=== PATIENT | female | born 1955 | race American Indian/Alaskan Native ===

== ENCOUNTER 2020-08-11 11:40 | Emergency (ER) | payer MEDICAID ==
[2020-08-11 13:27] LABS: Basophils # (Auto) 0.1 K/mm3 (0.0-0.1); Basophils % (Auto) 0.8 % (0.0-1.8); Eosinophils # (Auto) 0.1 K/mm3 (0.0-0.4); Eosinophils % (Auto) 1.6 % (0.0-4.3); Hematocrit 39.1 % (30.3-42.9); Hemoglobin 12.8 gm/dl (10.1-14.3); Lymphocytes # (Auto) 1.8 K/mm3 (1.2-5.4); Lymphocytes % (Auto) 27.5 % (13.4-35.0); Mean Corpuscular HGB Conc 33 % (30-34); Mean Corpuscular Volume 79 fl (79-97); Monocytes # (Auto) 0.5 K/mm3 (0.0-0.8); Monocytes % (Auto) 7.1 % (0.0-7.3); Platelet Count 318 K/mm3 (140-440); Red Blood Count 4.94 M/mm3 (3.65-5.03); Red Cell Distribution Width 16.2 % (13.2-15.2)
[2020-08-11 14:23] LABS: Alanine Aminotransferase 118 units/L (7-56); BUN/Creatinine Ratio 13; Blood Urea Nitrogen 10 mg/dL (7-17); Hemolysis Index 34
--- NOTE | 2020-08-11 18:34 | Emergency Department Report ---
ED General Adult HPI - General Chief complaint: Hyperglycemia Stated complaint: HIGH SUGAR Time Seen by Provider: 08/11/20 18:25 Source: patient Mode of arrival: Ambulatory Limitations: No Limitations - History of Present Illness Initial comments: Patient is a 65-year-old female COPD, diabetes, hypercholesterolemia who presents emergency room for evaluation elevated blood sugar. Patient states that at 2 PM today she felt more weak than usual and had an episode where she fell towards her left side. 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 She has had no trauma today and denies losing consciousness secondary to the incident. Patient's mother states that she seems more drowsy than normal and today her blood sugar was 492mg/dl and so she was instructed to come to her emergency room by her mother. Patient states that her niece has been administering her medications at home and she currently takes aspirin Plavix lisinopril and the tablet for her diabetes. Patient states that she currently feels fine now that she is arrived to the emergency room. And she "would like to be checked out". - Related Data Allergies Allergy/AdvReac Type Severity Reaction Status Date / Time No Known Allergies Allergy Unverified 08/11/20 12:00 ED Review of Systems ROS: Stated complaint: HIGH SUGAR Other details as noted in HPI Comment: All other systems reviewed and negative Constitutional: weakness (generalized.). denies: chills, fever Eyes: denies: eye pain, eye discharge, vision change ENT: denies: ear pain, throat pain Respiratory: denies: cough, shortness of breath, wheezing Cardiovascular: denies: chest pain, palpitations Endocrine: no symptoms reported Gastrointestinal: denies: abdominal pain, nausea, diarrhea Genitourinary: denies: urgency, dysuria, discharge Musculoskeletal: denies: back pain, joint swelling, arthralgia Skin: denies: rash, lesions Neurological: weakness (has residual left sided weakness after her CVA.). denies: headache, paresthesias Psychiatric: denies: anxiety, depression Hematological/Lymphatic: denies: easy bleeding, easy bruising ED Past Medical Hx - Past Medical History Previous Medical History?: Yes Hx Hypertension: Yes Hx CVA: Yes Hx Diabetes: Yes Additional medical history: high cholesterol - Surgical History Past Surgical History?: No - Social History Smoking Status: Never Smoker Substance Use Type: None ED Physical Exam - General Limitations: No Limitations General appearance: alert, in no apparent distress - Head Head exam: Present: atraumatic, normocephalic - Eye Eye exam: Present: normal appearance - ENT ENT exam: Present: mucous membranes moist - Neck Neck exam: Present: normal inspection - Respiratory Respiratory exam: Present: normal lung sounds bilaterally. Absent: respiratory distress - Cardiovascular Cardiovascular Exam: Present: regular rate, normal rhythm. Absent: systolic murmur, diastolic murmur, rubs, gallop - GI/Abdominal GI/Abdominal exam: Present: soft, normal bowel sounds - Rectal Rectal exam: Present: deferred - Extremities Exam Extremities exam: Present: normal inspection - Back Exam Back exam: Present: normal inspection - Neurological Exam Neurological exam: Present: alert, oriented X3, CN II-XII intact (no FND on exam, strength symmetric in bilateral upper extremities.) - Psychiatric Psychiatric exam: Present: normal affect, normal mood - Skin Skin exam: Present: warm, dry, intact, normal color. Absent: rash ED Course Vital Signs 08/11/20 08/11/20 08/11/20 12:00 18:29 18:35 Temperature 98.7 F 98.7 F Pulse Rate 80 93 H 92 H Respiratory 18 16 16 Rate Blood Pressure 162/85 170/87 Blood Pressure 170/87 [Left] O2 Sat by Pulse 95 96 96 Oximetry 08/11/20 08/11/20 08/11/20 19:40 19:46 20:00 Temperature 98.6 F Pulse Rate 77 68 87 Respiratory 15 12 19 Rate Blood Pressure 167/97 168/92 Blood Pressure 167/97 [Left] O2 Sat by Pulse 97 96 100 Oximetry 08/11/20 08/11/20 08/11/20 20:16 20:30 20:46 Temperature Pulse Rate 94 H 76 73 Respiratory 20 15 17 Rate Blood Pressure 168/92 170/82 170/82 Blood Pressure [Left] O2 Sat by Pulse 99 97 99 Oximetry - Reevaluation(s) Reevaluation #1: 08/11/20 18:42 Patient's blood glucose downtrending without any ED interventions. Will reassess after IV fluids and metformin have been given. UA pending. No evidence of DKA or HHS at this time. Patient has no gap and no acidosis. 08/11/20 18:49 Reevaluation #2: Patient's urinalysis is devoid of any abnormalities. Patient's blood glucose has decreased significantly during her stay. Patient feels symptomatically improved will discharge patient home with primary care follow-up as an outp atient. 08/11/20 21:04 ED Medical Decision Making - Lab Data Result diagrams: 08/11/20 12:49 08/11/20 18:38 Laboratory Tests 08/11/20 08/11/20 08/11/20 12:03 12:49 12:49 WBC 6.5 RBC 4.94 Hgb 12.8 Hct 39.1 MCV 79 MCH 26 L MCHC 33 RDW 16.2 H Plt Count 318 Lymph % (Auto) 27.5 [place] % (Auto) 7.1 Eos % (Auto) 1.6 Baso % (Auto) 0.8 Lymph # (Auto) 1.8 [place] # (Auto) 0.5 Eos # (Auto) 0.1 Baso # (Auto) 0.1 Seg Neutrophils % 63.0 Seg Neutrophils # 4.1 VBG pH Sodium 135 L Potassium 4.5 Chloride 99.9 Carbon Dioxide 27 Anion Gap 13 BUN 10 Creatinine 0.8 Estimated GFR > 60 BUN/Creatinine Ratio 13 Glucose 499 H POC Glucose 465 H Calcium 10.0 Total Bilirubin 0.30 AST 47 H ALT 118 H Alkaline Phosphatase 115 Total Protein 7.6 Albumin 4.0 Albumin/Globulin Ratio 1.1 08/11/20 12:49 WBC RBC Hgb Hct MCV MCH MCHC RDW Plt Count Lymph % (Auto) [place] % (Auto) Eos % (Auto) Baso % (Auto) Lymph # (Auto) [place] # (Auto) Eos # (Auto) Baso # (Auto) Seg Neutrophils % Seg Neutrophils # VBG pH 7.365 Sodium Potassium Chloride Carbon Dioxide Anion Gap BUN Creatinine Estimated GFR BUN/Creatinine Ratio Glucose POC Glucose Calcium Total Bilirubin AST ALT Alkaline Phosphatase Total Protein Albumin Albumin/Globulin Ratio Laboratory Tests 08/11/20 08/11/20 08/11/20 12:03 12:49 12:49 WBC 6.5 RBC 4.94 Hgb 12.8 Hct 39.1 MCV 79 MCH 26 L MCHC 33 RDW 16.2 H Plt Count 318 Lymph % (Auto) 27.5 [place] % (Auto) 7.1 Eos % (Auto) 1.6 Baso % (Auto) 0.8 Lymph # (Auto) 1.8 [place] # (Auto) 0.5 Eos # (Auto) 0.1 Baso # (Auto) 0.1 Seg Neutrophils % 63.0 Seg Neutrophils # 4.1 VBG pH Sodium 135 L Potassium 4.5 Chloride 99.9 Carbon Dioxide 27 Anion Gap 13 BUN 10 Creatinine 0.8 Estimated GFR > 60 BUN/Creatinine Ratio 13 Glucose 499 H POC Glucose 465 H Calcium 10.0 Total Bilirubin 0.30 AST 47 H ALT 118 H Alkaline Phosphatase 115 Total Protein 7.6 Albumin 4.0 Albumin/Globulin Ratio 1.1 08/11/20 08/11/20 12:49 18:39 WBC RBC Hgb Hct MCV MCH MCHC RDW Plt Count Lymph % (Auto) [place] % (Auto) Eos % (Auto) Baso % (Auto) Lymph # (Auto) [place] # (Auto) Eos # (Auto) Baso # (Auto) Seg Neutrophils % Seg Neutrophils # VBG pH 7.365 Sodium Potassium Chloride Carbon Dioxide Anion Gap BUN Creatinine Estimated GFR BUN/Creatinine Ratio Glucose POC Glucose 339 H Calcium Total Bilirubin AST ALT Alkaline Phosphatase Total Protein Albumin Albumin/Globulin Ratio - EKG Data -: EKG Interpreted by Tn EKG shows normal: sinus rhythm Rate: normal - EKG Data Interpretation: no acute changes, normal EKG 08/11/20 18:52 Heart rate 84, PA level 187, QTc 425. - Medical Decision Making Patient is a 65-year-old female with a past medical history of hypertension, hypercholesterolemia, type 2 diabetes who presents emergency room for evaluation of elevated blood sugar and generalized weakness. Patient's vital signs were stable on arrival to the emergency room and remarkable for systolic hypertension. I gave consideration to HHS, DKA, true hypoglycemia. Basic labs were ordered to evaluate. An EKG was ordered to assure that there were no arrhythmic changes resulting in the patient's feeling of generalized weakness. She had no FND, low clinical suspicion for recurrent CVA. She was given IV fluids for symptomatic care. Disposition pending labs and improvement in her BGL. Critical care attestation.: If time is entered above; I have spent that time in minutes in the direct care of this critically ill patient, excluding procedure time. ED Disposition Clinical Impression: Hyperglycemia due to type 2 diabetes mellitus, Generalized weakness, Essential hypertension Disposition: TO HOME OR SELFCARE Is pt being admited?: No Does the pt Need Aspirin: No Condition: Stable Instructions: Hyperglycemia, [id number], Type 2 Diabetes Mellitus, Self Care, Adult, Weakness, [id number], Hyperglycemia, Diabetes Mellitus Type 2 in Adults (ED), Hypertension (ED) Referrals: PRIMARY CARE, [Primary Care Provider] - 3-5 Days Time of Disposition: 21:05
[2020-08-11] MEDS ORDERED: SODIUM CHLORIDE 0.9% 1000 ML 1,000 ML IV ONE (18:37)
[2020-08-11] MEDS ORDERED: metFORMIN 500 MG TAB PO ONE (18:47)
[2020-08-11] MEDS ORDERED: INSULIN NPH/REGULAR 70/30 INJ SUB-Q ONE (19:30)
[2020-08-11] MEDS ORDERED: K-LYTE 25 MEQ TABLET EFF PO STA (19:30)
[2020-08-11] MEDS ORDERED: POTASSIUM CHLORIDE 10 MEQ 10 MEQ/100 ML BAG IV ONE (19:31)
[2020-08-11 20:50] LABS: Bilirubin,Urine NEG (Negative); Blood,Urine NEG (Negative); Color,Urine Straw (Yellow); Protein,Urine <15 mg/dL mg/dL (Negative); Urobilinogen,Urine < 2.0 mg/dL (<2.0); WBC,Urine < 1.0 /HPF (0.0-6.0)
[2020-08-11 20:54] LABS: RBC,Urine < 1.0 /HPF (0.0-6.0)
[2020-08-11 23:54] VITALS: BP 159/81
== END 2020-08-11 23:55 | disposition home or self-care (01) ==
LOC: ED 11:40
DX: E11.65 Type 2 diabetes mellitus with hyperglycemia (principal); I10 Essential (primary) hypertension; R53.1 Weakness; J44.9 Chronic obstructive pulmonary disease, unspecified; E78.00 Pure hypercholesterolemia, unspecified; Z86.69 Personal history of other diseases of the nervous system and sense organs
CPT/HCPCS: 36415; 80053; 81001; 82805; 82947; 82962; 85025; 93005; 96360; 96372; 99284; J7030; J1815